=== PATIENT | male | born 1985 | race Caucasian/White ===

== ENCOUNTER 2016-12-03 17:36 | Emergency (ER) | payer OTHER ==
[~2016-12-03] VITALS: Ht 175.3 cm; Wt 110.9 kg
[~2016-12-03 17:36] MED LIST: BACTRIM,SEPT1 TABLET PO; CLEOCIN150 MG PO; CLEOCIN300 MG PO; DILAUDID2 MG PO; ENDOCET 5-3251 EACH PO; KEFLEX250 MG PO; KEFLEX500 MG PO; MOTRIN IB200 MG PO; NICOTINE PATCH1 EAC2 TD; NOHOMEMEDS; PERCOCET 5/31 TABLET PO; PREDNISONE50 MG PO; PROMETHAZINE HC25 M1 PO; PROVENTIL,200 INHALA IH; TYLENOL EXTRA500 MG PO; VENTOLIN HFA18 GM IH; VICODIN,LORT1 TABLET PO
[2016-12-03 18:18] VITALS: BP 137/87
== END 2016-12-03 18:18 | disposition left against medical advice (07) ==
LOC: EME 17:36
DX: T40.1X1A Poisoning by heroin, accidental (unintentional), initial encounter (principal); J44.9 Chronic obstructive pulmonary disease, unspecified; J45.909 Unspecified asthma, uncomplicated; F17.200 Nicotine dependence, unspecified, uncomplicated; Z71.6 Tobacco abuse counseling
CPT/HCPCS: 99281; 99283; J2310

== ENCOUNTER 2017-07-27 16:16 | Emergency (ER) | payer OTHER ==
[2017-07-27] MEDS ORDERED: NARCAN4 MG NS (16:21)
== END 2017-07-27 16:29 | disposition left against medical advice (07) ==
LOC: EME 16:16
DX: T40.1X1A Poisoning by heroin, accidental (unintentional), initial encounter (principal)
CPT/HCPCS: 99281; 99283; J2310